=== PATIENT | female | born 1995 | race Caucasian/White ===

== ENCOUNTER 2016-04-20 17:12 | Emergency (ER) | payer OTHER ==
[~2016-04-20] VITALS: Ht 160 cm; Wt 56.7 kg
[2016-04-20 17:14] VITALS: BP 147/75
[2016-04-20] MEDS ORDERED: UNIS25TA2 PO (17:37)
[2016-04-20] MEDS ORDERED: VITA50TA49 PO (17:37)
[2016-04-20] MEDS ORDERED: PRENTAB7 PO (17:37)
[2016-04-20] MEDS ORDERED: ONDANSETRON 4MG/2ML VIAL (J2405) IV ONE ×2 (17:45→19:15)
[2016-04-20] MEDS ORDERED: NS 1,000 ML IV ONE (17:45)
[2016-04-20 18:40] LABS: ANION GAP 11 MEQ/L (8-16); BLOOD UREA NITROGEN 5 MG/DL (7-18); CALCIUM LEVEL 8.2 MG/DL (8.5-10.1); CARBON DIOXIDE LEVEL 21 MEQ/L (21-32); CHLORIDE LEVEL 105 MEQ/L (98-107); CREATININE FOR GFR 0.48 MG/DL (0.55-1.02); GLOMERULAR FILTRATION RATE > 60.0 (>60); GLUCOSE, FASTING 75 MG/DL (70-105); POTASSIUM SERUM 3.3 MEQ/L (3.5-5.1); SODIUM LEVEL 137 MEQ/L (136-145)
[2016-04-20] MEDS ORDERED: POTASSIUM CHL PWD 20 MEQ PACKET PO ONE (19:00)
[2016-04-20] MEDS ORDERED: METOCLOPRAMIDE INJ 10MG/2ML VIAL (J2765) IV ONE (19:15)
[2016-04-20] MEDS ORDERED: ACETAMINOPHEN TAB 650MG DOSE (2X325MG) PO ONE (19:15)
== END 2016-04-20 20:10 | disposition left against medical advice (07) ==
LOC: M ED 18:06
DX: O26.891 Other specified pregnancy related conditions, first trimester (principal); R11.0 Nausea; Z3A.00 Weeks of gestation of pregnancy not specified
CPT/HCPCS: 80048; 81001; 96374; 96375; 96376; 99281; J2405; J2765

== ENCOUNTER 2016-09-11 23:10 | Emergency (ER) | payer OTHER ==
[~2016-09-11] VITALS: Ht 160 cm; Wt 65.4 kg
[~2016-09-11 23:10] MED LIST: PRENTAB7 PO; UNIS25TA2 PO; VITA50TA49 PO
[2016-09-11] MEDS ORDERED: NS 1,000 ML IV ONE (23:45)
[2016-09-11 23:52] LABS: ABG BASE EXCESS 0.8 (-2.0-2.0); ABG HCO3 21.6 MEQ/L (22.0-26.0); ABG PARTIAL PRESSURE CO2 25.6 mmHg (35.0-45.0); ABG PARTIAL PRESSURE O2 111.8 mmHg (75.0-100.0); ABG STANDARD HCO3 25.2 MEQ/L (22.0-26.0); ABG TOTAL CO2 22.4 MEQ/L (22.0-29.0); ABG pH (ARTERIAL) 7.544 UNITS (7.350-7.450)
[2016-09-11 23:56] LABS: BASO % 0.2 % (0.0-1.0); EOS # 0.2 K/mm3 (0.0-0.50); LARGE UNSTAINED CELL # 0.2 K/mm3 (0.0-0.4); LARGE UNSTAINED CELL % 1.6 % (0.0-4.0); LYMPH # 2.8 K/mm3 (1.5-6.5); LYMPH % 20.9 % (24.0-44.0); MEAN CORPUSCULAR HEMOGLOBIN 32.5 pg (27.0-33.0); MEAN CORPUSCULAR HGB CONC 35.7 g/dl (32.0-36.5); MEAN CORPUSCULAR VOLUME 91.2 fl (80.0-96.0); MONO # 0.5 K/mm3 (0.0-0.8); MONO % 4.2 % (0.0-5.0); NEUTROPHILS % 71.1 % (36.0-66.0); PLATELET COUNT, AUTOMATED 142 k/mm3 (150-450); RED CELL DISTRIBUTION WIDTH 13.2 % (11.5-14.5); WHITE BLOOD COUNT 12.7 K/mm3 (4.0-10.0)
--- NOTE | 2016-09-12 01:03 | REP ---
Clinical: Chest pain dyspnea. Comparison: None . Technique: PA and lateral. Findings: The mediastinum and cardiac silhouette are normal. The lung early are clear and without acute consolidation, effusion, or pneumothorax. The skeletal structures are intact and normal. Impression: 1. No acute cardiopulmonary process. Signed by Arnoldo Carolina MD 09/12/2016 12:54 A
[2016-09-12 01:47] LABS: ALBUMIN 2.4 GM/DL (3.2-5.2); ALBUMIN/GLOBULIN RATIO 0.69 (1.00-1.93); ALKALINE PHOSPHATASE 149 U/L (45-117); ALT/SGPT 88 U/L (12-78); ANION GAP 11 MEQ/L (8-16); AST/SGOT 114 U/L (15-37); BILIRUBIN,DIRECT 0.1 MG/DL (0.0-0.2); BILIRUBIN,TOTAL 0.4 MG/DL (0.2-1.0); BLOOD UREA NITROGEN 14 MG/DL (7-18); CARBON DIOXIDE LEVEL 23 MEQ/L (21-32); CHLORIDE LEVEL 109 MEQ/L (98-107); CREATININE FOR GFR 0.68 MG/DL (0.55-1.02); GLOMERULAR FILTRATION RATE > 60.0 (>60); GLUCOSE, FASTING 71 MG/DL (70-105); POTASSIUM SERUM 3.8 MEQ/L (3.5-5.1); SODIUM LEVEL 143 MEQ/L (136-145); TOTAL PROTEIN 5.9 GM/DL (6.4-8.2)
[2016-09-12] MEDS ORDERED: hydrALAZINE INJ 20 MG/ML VIAL IV STA ×2 (04:14→05:08)
[2016-09-12 05:13] VITALS: BP 166/82
[2016-09-12] MEDS ORDERED: hydrALAZINE INJ 20 MG/ML VIAL IV ONE (05:15)
[2016-09-12 05:43] VITALS: BP 148/72
[2016-09-12] MEDS ORDERED: TUMS500C PO (06:50)
== END 2016-09-12 05:51 | disposition short-term general hospital (02) ==
LOC: M ED 23:10
DX: O13.3 Gestational [pregnancy-induced] hypertension without significant proteinuria, third trimester (principal); O14.23 HELLP syndrome (HELLP), third trimester; O14.93 Unspecified pre-eclampsia, third trimester; Z3A.31 31 weeks gestation of pregnancy; Z79.899 Other long term (current) drug therapy; Z88.0 Allergy status to penicillin

== ENCOUNTER 2016-09-12 06:17 | Inpatient (IN) | payer OTHER ==
[~2016-09-12] VITALS: Ht 160 cm; Wt 64.0 kg
[2016-09-12] VITALS (16 sets, daily range): BP systolic 123–167; BP diastolic 69–93
[~2016-09-12 06:17] MED LIST changes: +CALCIUM GLUCONATE 1,000MG/10ML VIAL (100MG/ML) (J0610) IV SCH
[2016-09-12] MEDS ORDERED: TUMS500C PO (06:50)
[2016-09-12] MEDS ORDERED: BETAMETHASONE SOLUSPAN 6MG/ML INJ 5ML (J0702) IM SCH (07:00)
[2016-09-12] MEDS ORDERED: MAGNESIUM SULFATE 4% INJ 20GM/500ML (40MG/ML) (J3475) As Ordered ONE (07:52)
[2016-09-12] MEDS ORDERED: LR 1,000 ML IV SCH (08:00)
[2016-09-12] MEDS ORDERED: MAG Sulf (L&D) 4 GM/100 ML 6 GM in APPROPRIATE DILUENT 1 EA IV ONE (08:00)
[2016-09-12] MEDS ORDERED: CALCIUM GLUCONATE 1,000 MG in D5W MINI-BAG PLUS 100 ML IV PRN (08:00)
[2016-09-12] MEDS: MAG Sulf (OBGYN) 20GM/500ML 20,000 MG in APPROPRIATE DILUENT 1 EA IV SCH ×2 (08:03→09:34)
[2016-09-12] MEDS ORDERED: ONDANSETRON 4MG/2ML VIAL (J2405) IV PRN (08:15)
[2016-09-12] MEDS ORDERED: NIFEdipine 10 MG CAP As Ordered ONE (10:10)
== END 2016-09-12 10:20 | disposition short-term general hospital (02) | DRG 781 ==
LOC: M LDO 06:17 → M LDI 08:08
PROVIDERS: ADMIT Obstetrics & Gynecology; ATTEND Obstetrics & Gynecology
DX: O14.13 Severe pre-eclampsia, third trimester (principal); Z3A.31 31 weeks gestation of pregnancy